=== PATIENT | female | born 1965 | race Caucasian/White ===

== ENCOUNTER 2016-10-01 20:47 | Emergency (ER) | payer BC ==
[2016-10-01 21:01] VITALS: RESP 16; O2SAT 96
--- NOTE | 2016-10-01 22:14 | EDPHY ---
H & P Stated Complaint: constipation; post-op on Sunday Time Seen by Provider: 10/01/16 22:04 HPI/ROS: HPI The patient presents with constipation for the last 5 days which has been constant and getting progressively worse. Her last bowel movement was 5 days ago before having her wisdom teeth extracted at the oral surgeon. She did receive what is described as light sedation for this and has been taking Demerol initially. She is now off of any medications though did try Dulcolax and Colace without any improvement in her symptoms. She is visiting from out of town and returns back home to [place] tomorrow. She does not have any abdominal pain or vomiting. She is able to eat without difficulty. REVIEW OF SYSTEMS Constitutional: No fever, no chills. Eyes: No discharge. ENT: No sore throat. Cardiovascular: No chest pain, no palpitations. Respiratory: No cough, no shortness of breath. Gastrointestinal: No abdominal pain, no vomiting. Genitourinary: No hematuria. Musculoskeletal: No back pain. Skin: No rashes. Neurological: No headache. PMHx: Recent wisdom tooth extraction Soc Hx: Visiting from out of town PHYSICAL General Appearance: Alert, no distress Eyes: Pupils equal and round no pallor or injection ENT, Mouth: Mucous membranes moist Respiratory: Breathing comfortably Cardiovascular: Regular rate and rhythm Gastrointestinal: Abdomen is soft and non-tender, no masses, bowel sounds normal Neurological: A&O, moves all extremities Skin: Warm and dry, no rashes Musculoskeletal: Neck is supple non tender Extremities: symmetrical, full range of motion Psychiatric: Patient is oriented X 3, there is no agitation Source: Patient Exam Limitations: No limitations - Personal History LMP (Females 10-55): Unknown Current Tetanus/Diphtheria Vaccine: Unsure - Medical/Surgical History Hx Asthma: No Hx Chronic Respiratory Disease: No Hx Diabetes: No Hx Cardiac Disease: No Hx Renal Disease: No Hx Cirrhosis: No Hx Alcoholism: No Hx HIV/AIDS: No Hx Splenectomy or Spleen Trauma: No Other PMH: PMHx: currently menopausal. PSHx: wisdom tooth extraction - Social History Smoking Status: Never smoked Constitutional: Initial Vital Signs Temperature (C) 36.9 C 10/01/16 20:57 Heart Rate 87 10/01/16 20:57 Respiratory Rate 16 10/01/16 20:57 Blood Pressure 129/80 H 10/01/16 20:57 O2 Sat (%) 96 10/01/16 20:57 O2 Delivery Mode Room Air Allergies/Adverse Reactions: erythromycin base Allergy (Verified 10/01/16 20:57) Home Medications: Medication Instructions Recorded NK [No Known Home Meds] 10/01/16 Medical Decision Making Differential Diagnosis: This is a 50-year-old healthy female who presents with constipation for the last 6 days, no bowel movements. She has no prior history of abdominal surgeries and no vomiting, thus I think bowel obstruction is less likely. Her constipation could be related to opiates she received postoperatively. Plan for soapsuds enema. In the ER, the patient received an enema with minimal stool output. Thus disimpaction was performed by me with return of copious stool. She felt better after this. I have instructed her to take magnesium citrate an use a Dulcolax suppository to help prevent further constipation. Her abdominal exam is benign. Differential diagnoses considered include constipation, small-bowel obstruction , less likely diverticulitis. Departure - Departure Disposition: Home, Routine, Self-Care Clinical Impression: Constipation Condition: Good Instructions: Constipation (ED), High Fiber Diet (ED) Referrals: [facility] [Other] - As per Instructions
[2016-10-01 23:16] VITALS: BP 122/78; PULSE 86; TEMP 98.2
== END 2016-10-01 23:16 | disposition home or self-care (01) ==
DX: K59.00 Constipation, unspecified (principal)